=== PATIENT | female | born 1980 | race Caucasian/White ===

== ENCOUNTER 2016-11-17 07:49 | Emergency (ER) | payer MEDICAID ==
[~2016-11-17] VITALS: Ht 165.1 cm; Wt 70.0 kg
[~2016-11-17 07:49] MED LIST: TRAZ50TA18 PO
[2016-11-17] MEDS ORDERED: DIPHENHYDRAMINE 50 MG/ML, 1ML IVPush ONE (09:00)
[2016-11-17] MEDS ORDERED: KETOROLAC 30 MG/1 ML IVPush ONE (09:00)
[2016-11-17] MEDS ORDERED: SODIUM CHLORIDE 0.9% 1,000ML IVBOLUS ONE (09:00)
[2016-11-17] MEDS ORDERED: SODIUM CHLORIDE FLUSH 10ML SYR IVF ONE (09:00)
[2016-11-17] MEDS ORDERED: METOCLOPRAMIDE 5 MG/ML, 2ML IVPush ONE (09:00)
[2016-11-17] MEDS ORDERED: KETOROLAC 30 MG/1 ML ONE (09:19)
[2016-11-17] MEDS ORDERED: DIPHENHYDRAMINE 50 MG/ML, 1ML ONE (09:20)
[2016-11-17] MEDS ORDERED: METOCLOPRAMIDE 5 MG/ML, 2ML ONE (09:20)
[2016-11-17 10:16] VITALS: BP 129/87
== END 2016-11-17 10:18 | disposition home or self-care (01) ==
LOC: ED 09:37
DX: J20.9 Acute bronchitis, unspecified (principal); B34.9 Viral infection, unspecified
CPT/HCPCS: 71010; 93005; 96361; 96374; 96375; 99284; J1200; J1885; J2765; J7030